=== PATIENT | male | born 1960 | race African-American/Black ===

== ENCOUNTER 2017-04-29 07:41 | Day surgery (SDC) | payer MEDICAID ==
[~2017-04-29] VITALS: Ht 167.6 cm; Wt 135.2 kg
[~2017-04-29 07:41] MED LIST: AMLODIPINE10 M2 PO; ASPIR-LOW81 MG PO; BACLOFEN 10MG T10 MG PO; GABAPENTIN300 MG PO; HABITROL21 MG/24 H TD; MAXZIDE 50 MG-71 TAB OR; NITROGLYCERIN0.4 MG SL; PAXIL40 M1 PO; PHARMASSURE FO0.4 MG PO; PROTONIX 40MG T40 MG PO; ROBAXIN 500 MG500 MG PO; SENOKOT TABLET1 EACH PO; TRAMADOL 50MG T50 M1 PO; TYLENOL ES500 MG PO; WARFARIN SODIUM6 MG PO; ZANAFLEX2 M1 PO; [UNRECOGNIZED DRUG - OTHER] PO
--- NOTE | 2017-04-29 13:15 | Anesthesia Record ---
Anesthesia Record Part I Total IV fluids: 600 EBL (ml): 5 Urine Output: 0 B/P: 143/75 % SaO2: 93 Pulse: 83 Resps: 16 Temp: 97.8 Patient is: Awake, Stable Stable to PACU at: 1133 at 1314
--- NOTE | 2017-04-29 13:15 | Anesthesia Record ---
Anesthesia Record Part II Discharge time: 1133 Destination: Same day surgery PACU nurse assessment review? Yes Patient is: Stable Anesthesia complications? No at 1317
[2017-04-29 13:26] VITALS: BP 105/66
--- NOTE | 2017-04-29 13:26 | Operative Note ---
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 The markup was incised and he was found to have a soft tissue neoplasm extending into the cartilage of the right ear superiorly. All of the lesion was mobilized using sharp and dull dissection and removed in entirety. Bleeding was stopped with bipolar cautery. The lesion extended through the cartilage of the superior aspect of the right ear. A tissue rearrangement geometric plastic repair was done using interrupted 5-0 Vicryl and 5-0 nylon sutures. Dressings were applied and the patient was sent to recovery in good general condition. EBL (ml): 1 Specimens obtained: Same as above at 1320
== END 2017-04-29 12:03 | disposition home or self-care (01) ==
LOC: SDC 07:41
PROVIDERS: Otolaryngology
PROC: 0HB2XZX Excision of Right Ear Skin, External Approach, Diagnostic (ICD-10-PCS; principal; 2017-04-29 10:00)
DX: H61.91 Disorder of right external ear, unspecified (principal); F25.0 Schizoaffective disorder, bipolar type; F43.10 Post-traumatic stress disorder, unspecified; Z79.01 Long term (current) use of anticoagulants; Z86.73 Personal history of transient ischemic attack (TIA), and cerebral infarction without residual deficits